=== PATIENT | male | born 1980 | race Caucasian/White ===

== ENCOUNTER 2017-02-16 02:39 | Emergency (ER) | payer OTHER ==
[~2017-02-16] VITALS: Ht 172.7 cm; Wt 69.4 kg
[2017-02-16 03:43] LABS: EOSINOPHIL (%) 0.7 % (0-5); EOSINOPHIL COUNT 0.1 K/uL (0-0.3); IMMATURE GRANULOCYTE (%) 0.1 % (0.0-0.7); INSTRUMENT ABS NEUTROPHIL CT 4.4 K/uL; LYMPHOCYTE COUNT 1.6 K/uL (1.0-2.8); MCHC 33.8 G/DL (30.0-36.0); MCV 91.7 FL (86-99); MONOCYTE (%) 11.3 % (3-12); MONOCYTE COUNT 0.8 K/uL (0-0.8); NEUTROPHIL (%) 64.4 % (45-76); NEUTROPHIL COUNT 4.4 K/uL (1.8-6.4); RBC DIS.WIDTH-CV 12.8 % (11.8-14.6); RBC DIS.WIDTH-SD 42.5 % (39-53); RED BLOOD COUNT 4.58 M/uL (4.00-5.50); WHITE BLOOD COUNT 6.8 K/uL (4.1-10.2)
[2017-02-16 03:51] LABS: CHLORIDE 102 mEq/L (99-109); POTASSIUM 3.2 mEq/L (3.7-5.4); SODIUM 140 mEq/L (136-147)
[2017-02-16 03:53] LABS: GLUCOSE 115 mg/dL (70-99)
[2017-02-16 03:54] LABS: ANION GAP 11 MEQ/L (2-14)
[2017-02-16 03:57] LABS: GFR ESTIMATE (CALCULATED) > 59 mL/min/
[2017-02-16 03:58] LABS: UREA NITROGEN (BUN) 13 mg/dL (9-23)
[2017-02-16 04:03] LABS: TROP-I INTERPRETATION NEGATIVE; TROPONIN-I < 0.01 ng/mL (0.0-0.30)
[2017-02-16 05:00] VITALS: BP 135/92
[2017-02-16 05:38] LABS: MEAN PLAT.VOLUME 10.2 uM^3 (9.0-12.4); PLAT.SUFFICIENCY ADEQUATE; PLATELET COUNT 244 K/uL (156-360)
== END 2017-02-16 06:30 | disposition home or self-care (01) ==
LOC: EDBD 02:39 → EME 02:39
PROVIDERS: Emergency Medicine
DX: R41.82 Altered mental status, unspecified (principal); F17.200 Nicotine dependence, unspecified, uncomplicated
CPT/HCPCS: 70450; 80048; 84484; 85025; 93005; 99281; 99284